=== PATIENT | male | born 1990 | race Asian ===

== ENCOUNTER 2017-01-29 04:00 | Emergency (ER) | payer MEDICAID ==
[~2017-01-29] VITALS: Ht 175.3 cm; Wt 75.0 kg
[2017-01-29 05:30] VITALS: BP 129/79
== END 2017-01-29 05:32 | disposition home or self-care (01) ==
LOC: EMS 04:02
DX: F41.9 Anxiety disorder, unspecified (principal)
CPT/HCPCS: 99283; 99284